=== PATIENT | female | born 1980 | race Hispanic/Latino ===

== ENCOUNTER 2018-02-02 15:25 | Emergency (ER) | payer BC ==
[2018-02-02 16:12] LABS: BILIRUBIN,URINE Negative (NEGATIVE); COLOR,URINE Orange (YELLOW); GLUCOSE, URINE (UA) Negative (NEGATIVE); KETONES,URINE Negative (NEGATIVE); LEUKOCYTE ESTERASE ,URINE Trace (NEGATIVE); NITRATE,URINE Negative (NEGATIVE); OCCULT BLOOD,URINE Large (NEGATIVE); PROTEIN,URINE POS 1+ (NEGATIVE); UROBILINOGEN,URINE 0.2 mg/dL (0.2-1.0)
[2018-02-02 16:14] LABS: APPEARANCE,URINE SLIGHTLY CLOUDY (CLEAR)
[2018-02-02 16:28] LABS: RBC,URINE 0-1 /HPF (0-1)
[2018-02-02 16:29] LABS: BACTERIA,URINE Few /HPF (None Seen); SQUAMOUS EPITHELIAL CELL,UR Few /HPF (0-2)
[2018-02-02 16:30] LABS: MUCUS,URINE Rare LPF (None Seen)
== END 2018-02-02 19:04 | disposition home or self-care (01) ==
LOC: EDH 15:25
DX: O02.1 Missed abortion (principal); Z3A.01 Less than 8 weeks gestation of pregnancy
CPT/HCPCS: 36415; 76817; 81001; 83033; 84702; 86900; 86901; 96372; 99285; J2791

== ENCOUNTER 2019-07-08 15:49 | Inpatient (IN) | payer BC ==
[~2019-07-08] VITALS: Ht 154.9 cm; Wt 112.9 kg
[2019-07-08] MEDS ORDERED: DINOPROSTONE 10 MG VAGINAL SUPP VG SCH (16:00)
[2019-07-08 16:49] LABS: HEMATOCRIT 36.9 % (36-48); MEAN CORPUSCULAR HEMOGLOBIN 32.8 pg (27.0-33.0); MEAN CORPUSCULAR HGB CONC 35.3 g/dL (32.0-36.0); MEAN CORPUSCULAR VOLUME 93.1 fL (79-99); PLATELET COUNT (AUTO) 194 K/uL (130-400); RED BLOOD CELL COUNT(AUTO) 3.97 MIL/uL (4.00-5.50); RED CELL DISTRIBUTION WIDTH 12.8 % (11.0-15.5); WHITE BLOOD COUNT (AUTO) 9.6 K/uL (4.8-10.8)
[2019-07-08 16:53] VITALS: BP 111/67
[2019-07-08 17:35] LABS: APPEARANCE,URINE Clear (CLEAR); BILIRUBIN,URINE Negative (NEGATIVE); COLOR,URINE Yellow (YELLOW); GLUCOSE, URINE (UA) Negative (NEGATIVE); KETONES,URINE Negative (NEGATIVE); LEUKOCYTE ESTERASE ,URINE Trace (NEGATIVE); NITRATE,URINE Negative (NEGATIVE); OCCULT BLOOD,URINE Negative (NEGATIVE); PH,URINE 6.5 (5.0-8.0); PROTEIN,URINE Negative (NEGATIVE); UROBILINOGEN,URINE 0.2 mg/dL (0.2-1.0)
[2019-07-08 17:58] LABS: BACTERIA,URINE Few /HPF (None Seen); MUCUS,URINE Few LPF (None Seen)
[2019-07-08] MEDS: LACTATED RINGERS 1000ML 1,000 ML IV PRN (22:03)
[2019-07-09] MEDS ORDERED: OXYTOCIN-LR 20 UNITS/1000 ML 1,000 ML IV ONE ×2 (05:21→16:37)
[2019-07-09] MEDS: LACTATED RINGERS 1000ML 1,000 ML IV PRN ×2 (05:55→21:02)
[2019-07-09] MEDS ORDERED: OXYTOCIN 10 USP UNITS/ML 20 UNIT in LACTATED RINGERS 1000ML 1,000 ML IV SCH (06:00)
[2019-07-09] MEDS ORDERED: BUTORPHANOL TARTRATE 2 MG/ML IVP PRN (14:00)
[2019-07-09] MEDS ORDERED: NALOXONE HCL 0.4 MG/1 ML ML IV PRN (16:15)
[2019-07-09] MEDS ORDERED: LACTATED RINGERS 500 ML 500 ML IV PRN (16:15)
[2019-07-09] MEDS: EPHEDRINE SULFATE 50 MG/ML AMPULE IVP PRN ×2 (17:47→17:52)
[2019-07-09] MEDS ORDERED: CEFAZOLIN SODIUM 1 GM VIAL ONE ×2 (21:38→21:39)
[2019-07-09] MEDS ORDERED: LIDOCAINE HCL-MPF 2% 10ML AMP IJ ONE (21:53)
[2019-07-09] MEDS ORDERED: OXYTOCIN 10 USP UNITS/ML ONE (22:05)
[2019-07-09] MEDS ORDERED: ONDANSETRON HCL 4 MG/2 ML VIAL ONE (22:15)
[2019-07-09] MEDS ORDERED: LIDOCAINE HCL-MPF 2% 5ML VIAL ONE (22:23)
[2019-07-09] MEDS ORDERED: MEPERIDINE-PF 75 MG/ML SYG IM PRN (22:45)
[2019-07-09] MEDS ORDERED: SODIUM CHLORIDE 0.9% 10 ML VIAL IVP PRN (22:45)
[2019-07-09] MEDS ORDERED: OXYTOCIN-LR 20 UNITS/1000 ML 1,000 ML IV PRN (22:45)
[2019-07-09] MEDS ORDERED: DEXTROSE 5 %-0.45 % NACL 1,000 ML IV PRN (22:45)
[2019-07-09] MEDS ORDERED: PROMETHAZINE HCL 25 MG/ML 1ML AMPULE IM PRN (22:45)
[2019-07-10] VITALS (7 sets, daily range): BP systolic 99–132; BP diastolic 49–80
[2019-07-10] MEDS ORDERED: MORPHINE SULFATE 2 MG/ML 1ML SYG ONE (00:26)
[2019-07-10] MEDS ORDERED: MEPERIDINE-PF 50 MG/ML SYG ONE (01:21)
[2019-07-10] MEDS ORDERED: MEPERIDINE-PF 25 MG/ML SYG ONE (01:21)
[2019-07-10] MEDS ORDERED: OXYTOCIN-LR 20 UNITS/1000 ML 1,000 ML IV ONE (01:32)
[2019-07-10 07:26] LABS: HEMATOCRIT 32.3 % (36-48); MEAN CORPUSCULAR HEMOGLOBIN 32.4 pg (27.0-33.0); MEAN CORPUSCULAR HGB CONC 34.9 g/dL (32.0-36.0); PLATELET COUNT (AUTO) 153 K/uL (130-400); RED BLOOD CELL COUNT(AUTO) 3.47 MIL/uL (4.00-5.50); RED CELL DISTRIBUTION WIDTH 12.7 % (11.0-15.5); WHITE BLOOD COUNT (AUTO) 13.1 K/uL (4.8-10.8)
[2019-07-10 08:11] LABS: HEPATITIS Bs ANTIGEN SCREEN P Negative (Negative)
[2019-07-10] MEDS ORDERED: HYDROCODONE/ACETAMINOPHEN 5/325 MG TAB PO PRN (11:15)
[2019-07-10] MEDS ORDERED: BISACODYL 10 MG SUPP.RECT RC PRN (11:15)
[2019-07-10] MEDS ORDERED: DIPHENHYDRAMINE HCL 25 MG CAPSULE PO PRN (11:15)
[2019-07-10] MEDS ORDERED: ACETAMINOPHEN EXTRA STRENGTH 500 MG TABLET PO PRN (11:15)
[2019-07-10] MEDS ORDERED: LANOLIN 30GM OINTMENT TP PRN (11:15)
[2019-07-10] MEDS: SIMETHICONE 80 MG TAB.CHEW PO PRN ×4 (11:27→23:37)
[2019-07-10] MEDS: IBUPROFEN 800 MG TAB PO SCH ×2 (11:28→19:23)
[2019-07-10] MEDS: ACETAMINOPHEN-CODEINE 300/30MG TAB PO PRN ×2 (15:27→20:43)
[2019-07-10] MEDS: DOCUSATE SODIUM 100 MG CAP PO SCH (20:38)
--- NOTE | 2019-07-10 23:40 | NUR ---
COMFORT C/O ABD PAIN, REFUSED DULCOLAX SUPP, HAS NOT HAD BM SINCE BEFORE ADMISSION Addendum: 07/11/19 at 0031 by CARLOS SHEEHAN LVN Amended: Links added.
[2019-07-11 03:49] VITALS: BP_SYST 105; BP_SYST 133; BP_DIAS 56; BP_DIAS 83
[2019-07-11] MEDS: IBUPROFEN 800 MG TAB PO SCH ×2 (04:19→15:07)
[2019-07-11 07:34] VITALS: BP 109/54
--- NOTE | 2019-07-11 08:05 | NUR ---
PATIENT ASSESSED AND INCISION WITH STERI STRIPS IS OPEN TO AIR. PATIENT ENCOURAGED TO PLACE A DRY PAD TO INCISION TO KEEP IT DRY SINCE INCISION IN UNDER A LARGE SKIN FOLD. VERBALIZED UNDERSTANDING.
[2019-07-11] MEDS: DOCUSATE SODIUM 100 MG CAP PO SCH (08:44)
[2019-07-11] MEDS: SIMETHICONE 80 MG TAB.CHEW PO PRN ×2 (08:44→15:07)
[2019-07-11] MEDS: ACETAMINOPHEN-CODEINE 300/30MG TAB PO PRN (08:46)
[2019-07-11 11:19] VITALS: BP 109/52
--- NOTE | 2019-07-11 13:30 | NUR ---
DR. KIM ROUNDED AND DISCHARGED PATIENT TO HOME. PATIENT STABLE AND DENIES ANY PROBLEMS.
--- NOTE | 2019-07-11 14:30 | NUR ---
DISCHARGE INSTRUCTIONS GIVEN AND PATIENT VERBALIZED UNDERSTANDING INSTRUCTIONS GIVEN. SCRIPT FOR PAIN MANAGEMENT GIVEN TO PATIENT.
--- NOTE | 2019-07-11 15:45 | NUR ---
PATIENT WAS TAKEN VIA W/C TO [facility] IN [place] AND WAS DISCHARGED TO HER BROTHER [place] AND . PATIENT STABLE.
== END 2019-07-11 15:45 | disposition home or self-care (01) | DRG 788 ==
LOC: LDH 15:49 → EDUNIT# 15:49 → WSH 07-10 00:58
PROVIDERS: ADMIT Obstetrics & Gynecology; ATTEND Obstetrics & Gynecology
PROC: 3E0234Z Introduction of Serum, Toxoid and Vaccine into Muscle, Percutaneous Approach (ICD-10-PCS; 2019-07-09)
PROC: 10D00Z1 Extraction of Products of Conception, Low, Open Approach (ICD-10-PCS; principal; 2019-07-09 22:17)
DX: O26.893 Other specified pregnancy related conditions, third trimester (principal); Z37.0 Single live birth; Z3A.39 39 weeks gestation of pregnancy; Z67.41 Type O blood, Rh negative
CPT/HCPCS: 36415; 59510; 81001; 83033; 85027; 86592; 86850; 86900; 86901; 87340; A4314; A4344; A4450; A4606; G0378; J0595; J0690; J2175; J2405; J2590; J2791; J3490; J7120

== ENCOUNTER 2021-04-16 21:30 | Emergency (ER) | payer BC ==
[~2021-04-16] VITALS: Ht 154.9 cm; Wt 99.8 kg
[2021-04-16 23:16] VITALS: BP 143/94
[2021-04-16 23:18] LABS: BASOPHILS % (AUTO) 0.2 % (0.0-5.0); HEMATOCRIT 40.3 % (36-48); LYMPHOCYTES % (AUTO) 5.7 % (21.0-51.0); MEAN CORPUSCULAR HEMOGLOBIN 31.6 pg (27.0-33.0); MEAN CORPUSCULAR HGB CONC 35.5 g/dL (32.0-36.0); MEAN CORPUSCULAR VOLUME 89.2 fL (79-99); MONOCYTES % (AUTO) 1.3 % (3.0-13.0); NEUTROPHILS % (AUTO) 92.5 % (40.0-77.0); PLATELET COUNT (AUTO) 232 K/uL (130-400); RED BLOOD CELL COUNT(AUTO) 4.52 MIL/uL (4.00-5.50); RED CELL DISTRIBUTION WIDTH 12.5 % (11.0-15.5); WHITE BLOOD COUNT (AUTO) 10.2 K/uL (4.8-10.8)
[2021-04-16 23:19] LABS: BILIRUBIN,URINE Negative (NEGATIVE); COLOR,URINE Yellow (YELLOW); GLUCOSE, URINE (UA) Negative (NEGATIVE); KETONES,URINE >=160 mg/dL (NEGATIVE); LEUKOCYTE ESTERASE ,URINE Negative (NEGATIVE); NITRATE,URINE Negative (NEGATIVE); OCCULT BLOOD,URINE Negative (NEGATIVE); PH,URINE 5.5 (5.0-8.0); PROTEIN,URINE Trace mg/dL (NEGATIVE)
[2021-04-16 23:21] LABS: APPEARANCE,URINE SLIGHTLY CLOUDY (CLEAR)
[2021-04-16 23:22] LABS: HCG,QUAL RESULT NEGATIVE (NEGATIVE)
[2021-04-16 23:28] LABS: CREATININE 0.6 mg/dL (0.5-1.5); POTASSIUM 3.8 mmol/L (3.5-5.1)
[2021-04-16 23:31] LABS: RBC,URINE 0-1 /HPF (0-1)
[2021-04-16 23:32] LABS: BACTERIA,URINE Moderate /HPF (None Seen)
[2021-04-16 23:33] LABS: ALBUMIN 4.1 g/dL (3.5-5.0); BILIRUBIN,TOTAL 0.5 mg/dL (0.2-1.0); TOTAL PROTEIN, SERUM 7.9 g/dL (6.0-8.3)
[2021-04-17] MEDS ORDERED: ONDANSETRON ODT 4MG TAB SL ONE
[2021-04-17] MEDS ORDERED: KETOROLAC 30MG VIAL (30MG/ML) IM ONE
[2021-04-17 00:52] VITALS: BP 132/87
[2021-04-17] MEDS ORDERED: MORPHINE 4 MG SYG IV ONE (01:30)
[2021-04-17] MEDS ORDERED: IBUP-2070 PO (03:52)
[2021-04-17] MEDS ORDERED: ONDA4TAB10 PO (03:52)
[2021-04-17 03:57] VITALS: BP 119/66
== END 2021-04-17 04:05 | disposition home or self-care (01) ==
LOC: EDH 21:30
DX: N83.202 Unspecified ovarian cyst, left side (principal); Z79.1 Long term (current) use of non-steroidal anti-inflammatories (NSAID); Z79.899 Other long term (current) drug therapy
CPT/HCPCS: 36415; 74176; 76856; 80053; 81001; 81025; 85025; 87088; 96372; 96374; 99285; J1885; J2270